=== PATIENT | male | born 1945 | race Caucasian/White ===

== ENCOUNTER 2018-02-05 11:43 | Outpatient (CLI) | payer OTHER, MEDICARE | END 2018-02-05 11:44 | disposition critical access hospital (66) | LOC: EMS 11:43 | PROVIDERS: ATTEND Surgery | DX: I46.9 Cardiac arrest, cause unspecified (principal) | CPT/HCPCS: A0425; A0427 ==

== ENCOUNTER 2018-02-05 11:51 | Emergency (ER) | payer OTHER, MEDICARE ==
[2018-02-05] MEDS ORDERED: DEXTROSE 50% ABBOJECT 25 GM/50 ML SYRINGE IVP ONE (11:52)
[2018-02-05] MEDS ORDERED: CALCIUM CHLORIDE ABBOJECT 1000MG/10 ML SYRINGE IVP ONE (11:52)
[2018-02-05] MEDS ORDERED: SODIUM BICARBONATE ABBOJECT 50 MEQ/50 ML SYRINGE IVP ONE (11:52)
[2018-02-05] MEDS ORDERED: EPINEPHrine ABBOJECT 1 MG/10 ML SYRINGE IVP ONE (11:52)
[2018-02-05] MEDS ORDERED: EPINEPHrine 4 MG in DEXTROSE 5% 246 ML IVP STA (12:18)
[2018-02-05] MEDS ORDERED: SODIUM CHLORIDE 0.9% 2,000 ML IV ONE (12:42)
[2018-02-05] MEDS ORDERED: EPINEPHrine ABBOJECT 1 MG/10 ML SYRINGE IVP STA (12:43)
[2018-02-05] MEDS ORDERED: SODIUM CHLORIDE 0.9% 1,000 ML IV ONE ×2 (12:43)
[2018-02-05] MEDS ORDERED: MAGNESIUM SULFATE 2 GRAM 2 GM/50 ML BAG IV ONE (12:43)
[2018-02-05 12:44] LABS: TROPONIN I 0.19 ng/mL (<0.49)
[2018-02-05] MEDS ORDERED: DEXTROSE 50% ABBOJECT 25 GM/50 ML SYRINGE IVP STA (12:44)
[2018-02-05] MEDS ORDERED: SODIUM BICARBONATE ABBOJECT 50 MEQ/50 ML SYRINGE IVP STA (12:44)
[2018-02-05 12:46] LABS: CREATINE KINASE MB 10.5 ng/mL (0.6-6.3)
[2018-02-05] MEDS ORDERED: ROCURONIUM 50 MG/5 ML VIAL IVP STA (12:46)
[2018-02-05 12:51] LABS: BASOPHILS # (AUTO) 0.1 10^3/uL (0.0-0.1); BASOPHILS % (AUTO) 0.4 %; EOSINOPHILS # (AUTO) 0.2 10^3/uL (0.0-0.7); EOSINOPHILS % (AUTO) 1.9 %; HGB - HEMOGLOBIN 11.4 g/dL (14.0-18.0); LYMPHOCYTES % (AUTO) 32.3 %; MEAN CORPUSCULAR HGB CONC 29.9 g/dL (32.0-36.0); MEAN CORPUSCULAR VOLUME 96.9 fL (80.0-94.0); MEAN PLATELET VOLUME 8.6 fL (7.4-11.4); MONOCYTES # (AUTO) 0.6 10^3/uL (0.0-1.0); NEUTROPHILS # (AUTO) 7.4 10^3/uL (1.5-6.6); NEUTROPHILS % (AUTO) 60.4 %; PLT - PLATELET COUNT 184 10^3/uL (130-450); RED BLOOD COUNT 3.93 10^6/uL (4.70-6.10); RED CELL DISTRIBUTION WIDTH 15.3 % (12.0-15.0); WHITE BLOOD COUNT 12.2 x10^3/uL (4.8-10.8)
--- NOTE | 2018-02-05 12:54 | ED Physician Documentation ---
PD HPI CPR - Stated complaint Stated Complaint: CPR - Chief complaint Chief Complaint: Critical Care - History obtained from History obtained from: EMS - History of Present Illness Timing - onset: How many hours ago (1) Timing - onset [place] Preceding symptoms: Unknown Contributing factors: CAD Witnessed: Arrest witnessed Bystander CPR: Bystander CPR EMS findings: Unresponsive, Apneic, Pulseless, Asystole Treatment ACCREDITED LEGAL SECRETARY: CPR, Oxygen, Intubated (edgar tube), Paced (patient has implanted pacemaker), Epi (x3) Advanced directive: Other (unknown) Review of Systems Unable to obtain: Unresponsive PD PAST MEDICAL HISTORY - Past Medical History Cardiovascular: Coronary artery disease - Past Surgical History Cardiovascular: CABG, Pacemaker - Present Medications Home Medications: Ambulatory Orders Medication Instructions Recorded Confirmed No Known Home Medications [No 02/05/18 02/05/18 Known Home Medications] - Allergies Allergies/Adverse Reactions: Allergies Allergy/AdvReac Type Severity Reaction Status Date / Time Unable to Assess Allergy Verified 02/05/18 13:33 PD ED PE NORMAL - Vitals Vital signs reviewed: Yes - General General: Other (unresponsive, pale, edgar tube in place) - HEENT HEENT: Other (vomit in mouth) - Cardiac Cardiac: Other (absent heart sounds) - Respiratory Respiratory: Other (rhonchi B with bagging) - Abdomen Abdomen: Soft, Other (distended) - Derm Derm: Other (cool, pale) - Extremities Extremities: No edema - Neuro Neuro: Other (unresponsive) Results - Vitals Vitals: Vital Signs - 24 hr 02/05/18 02/05/18 02/05/18 12:30 12:50 12:59 Temperature 35.6 C L Heart Rate 89 104 H 103 H Respiratory 13 17 Rate Blood Pressure 89/56 L 109/82 H O2 Saturation 98 91 L 02/05/18 02/05/18 02/05/18 13:21 13:39 14:05 Temperature Heart Rate 94 101 H 89 Respiratory 12 12 16 Rate Blood Pressure 113/85 H 118/82 H 96/65 O2 Saturation 99 98 100 02/05/18 02/05/18 02/05/18 14:15 14:20 14:56 Temperature 35.6 C L Heart Rate 86 91 85 Respiratory 12 18 Rate Blood Pressure 101/65 114/71 O2 Saturation 100 100 02/05/18 15:00 Temperature Heart Rate 85 Respiratory 18 Rate Blood Pressure 110/70 O2 Saturation 100 Oxygen O2 Source Mechanical ventilator - EKG (time done) 1209 Rate: Rate (enter#) (73) Rhythm: Other (AV paced) 1313 Rate: Rate (enter#) (101) Rhythm: Paced - Labs Labs: Laboratory Tests 02/05/18 02/05/18 02/05/18 12:05 12:05 12:05 WBC 12.2 H RBC 3.93 L Hgb 11.4 L Hct 38.1 L MCV 96.9 H MCH 29.0 MCHC 29.9 L RDW 15.3 H Plt Count 184 MPV 8.6 Neut # (Auto) 7.4 H Lymph # (Auto) 4.0 H [place] # (Auto) 0.6 Eos # (Auto) 0.2 Baso # (Auto) 0.1 Absolute Nucleated RBC 0.01 Nucleated RBC % 0.1 Manual Slide Review Indicated RBC Morph Micro Appear 2+ ANISOCYTOSIS PT INR Bld Gas Analysis Time Sample Site ABG pH ABG pCO2 ABG pO2 ABG HCO3 ABG Total CO2 ABG O2 Saturation ABG Oximetry Spot Check ABG Base Excess Hal Test Respiration Rate O2 Delivery Device Vent Mode FiO2 Tidal Volume PEEP Pressure Support Vent Sodium Potassium Chloride Carbon Dioxide Anion Gap BUN Creatinine Estimated GFR (MDRD) Glucose Calcium Phosphorus Magnesium Total Bilirubin AST ALT Alkaline Phosphatase Total Creatine Kinase 160 CK-MB (CK-2) 10.5 H Troponin I 0.19 Total Protein Albumin Globulin Albumin/Globulin Ratio Lipase Urine Color Urine Clarity Urine pH Ur Specific [place] Urine Protein Urine Glucose (UA) Urine Ketones Urine Occult Blood Urine Nitrite Urine Bilirubin Urine Urobilinogen Ur Leukocyte Esterase Urine RBC Urine WBC Ur Squamous Epith Cells Urine Bacteria Ur Microscopic Review Urine Culture Comments 02/05/18 02/05/18 02/05/18 12:05 12:05 13:16 WBC RBC Hgb Hct MCV MCH MCHC RDW Plt Count MPV Neut # (Auto) Lymph # (Auto) [place] # (Auto) Eos # (Auto) Baso # (Auto) Absolute Nucleated RBC Nucleated RBC % Manual Slide Review RBC Morph Micro Appear PT 15.9 H INR 1.4 H Bld Gas Analysis Time Sample Site ABG pH ABG pCO2 ABG pO2 ABG HCO3 ABG Total CO2 ABG O2 Saturation ABG Oximetry Spot Check ABG Base Excess Hal Test Respiration Rate O2 Delivery Device Vent Mode FiO2 Tidal Volume PEEP Pressure Support Vent Sodium 136 Potassium 5.1 H Chloride 103 Carbon Dioxide 15 L Anion Gap 18.0 H BUN 27 H Creatinine 1.6 H Estimated GFR (MDRD) 43 L Glucose 451 H Calcium 9.8 Phosphorus 4.9 H Magnesium 2.2 Total Bilirubin 0.7 AST 78 H ALT 39 Alkaline Phosphatase 63 Total Creatine Kinase CK-MB (CK-2) Troponin I Total Protein 6.8 Albumin 3.4 Globulin 3.4 Albumin/Globulin Ratio 1.0 Lipase 85 H Urine Color Urine Clarity Urine pH Ur Specific [place] Urine Protein Urine Glucose (UA) Urine Ketones Urine Occult Blood Urine Nitrite Urine Bilirubin Urine Urobilinogen Ur Leukocyte Esterase Urine RBC Urine WBC Ur Squamous Epith Cells Urine Bacteria Ur Microscopic Review Urine Culture Comments 02/05/18 02/05/18 02/05/18 13:20 13:49 15:30 WBC RBC Hgb Hct MCV MCH MCHC RDW Plt Count MPV Neut # (Auto) Lymph # (Auto) [place] # (Auto) Eos # (Auto) Baso # (Auto) Absolute Nucleated RBC Nucleated RBC % Manual Slide Review RBC Morph Micro Appear PT INR Bld Gas Analysis Time 1353 1531 Sample Site LEFT RADIAL LEFT RADIAL ABG pH 7.00 L* 7.14 L* ABG pCO2 58 H 39 ABG pO2 102 H 127 H ABG HCO3 14.2 L 12.9 L ABG Total CO2 16.0 L 14.1 L ABG O2 Saturation 94 98 ABG Oximetry Spot Check 98 100 ABG Base Excess -16.9 L -15.3 L Hal Test POSITIVE POSITIVE Respiration Rate 12 16 O2 Delivery Device VENTILATOR VENTILATOR Vent Mode SIMV SIMV FiO2 100.00 1.00 Tidal Volume 550 550 PEEP 7 7 Pressure Support Vent 10 10 Sodium Potassium Chloride Carbon Dioxide Anion Gap BUN Creatinine Estimated GFR (MDRD) Glucose Calcium Phosphorus Magnesium Total Bilirubin AST ALT Alkaline Phosphatase Total Creatine Kinase CK-MB (CK-2) Troponin I Total Protein Albumin Globulin Albumin/Globulin Ratio Lipase Urine Color YELLOW Urine Clarity HAZY Urine pH 6.0 Ur Specific [place] 1.020 Urine Protein 100 H Urine Glucose (UA) NEGATIVE Urine Ketones NEGATIVE Urine Occult Blood LARGE H Urine Nitrite NEGATIVE Urine Bilirubin NEGATIVE Urine Urobilinogen 0.2 (NORMAL) Ur Leukocyte Esterase NEGATIVE Urine RBC 11-25 H Urine WBC 0-3 Ur Squamous Epith Cells NONE SEEN Urine Bacteria Many H Ur Microscopic Review INDICATED Urine Culture Comments INDICATED - Rads (name of study) cxr Radiology: Prelim report reviewed, EMP read contemporaneously, See rad report ( Right lung diffuse airspace disease, differential including aspiration, pneumonia, asymmetric edema or ARDS. Endotracheal tube tip 6.5 cm above malcom. ) Procedures - Intubation Provider: Emergency physician Medications: Rocuronium Blade: Glidescope Tube: Size-enter number (7.5), Cuffed, Marked at lips-enter cm (22) Confirmation: Direct visualization, Bilateral breath sounds, No abdominal breath sound, End tidal CO2, Pulse ox, Chest xray Complications: No compications, Other (advanced 2cm after cxr) - Central Line Central Line Preparation: Unable to obtain consent, Ultrasound used, Sterile prep and drape Central line location: Right Femoral Central line type: Triple lumen Central line aftercare: Chlorhexidine disc placed, Secured, Placement confirmed , No complications PD MEDICAL DECISION MAKING - ED course Complexity details: reviewed results, re-evaluated patient, considered differential, d/w family (daughter arrived in the ED and updated), d/w pension consultant ED course: Patient is a 72-year-old male who was seen exiting the bathroom on the [facility] today when he collapsed. Bystanders were unable to palpate a pulse and started CPR. 911 was called. Patient was found to be in PEA with a paced rhythm upon EMS arrival. An AED was applied prior to EMS arrival and did not advise a shock. CPR was continued by EMS and epinephrine 1 was given. He then had return of spontaneous circulation and was breathing on his own. This lasted for approximately 10 minutes before he lost pulses again. At that point CPR was restarted and given epinephrine 2 with EMS. He then arrived to the emergency department. He was still in PEA at that time, bedside ultrasound did reveal a мария heart, though no palpable pulses. CPR was continued. Given bicarbonate, calcium, Dextrose, epinephrine 2. He then had return of spontaneous circulation again. He was also given IV fluid boluses. At that point he was monitored and found to maintain his pulses for approximately 5 minutes, at that point I changed out the Edgar tube that was placed by EMS to an endotracheal tube. 7.5. This was placed the glide scope in 1 attempt. A [place] was then inserted as well as an OG tube. I also placed a right femoral central line as he does have a pacemaker in place already. Patient was breathing over the ventilator from time to time. He was started on an epi drip as well as fentanyl and Versed for postintubation sedation. Contacted [facility] @[phone] and Intesivist will call back. Dr. Lopez (ICU at [facility]) graciously accepts in transfer at 1430. This document was made in part using voice recognition software. While efforts are made to proofread this document, sound alike and grammatical errors may occur. - Critical Care Time(min): 65 Time Includes: See progress note Data interpretation: See progress note Procedures included in critical care time: See progress note Procedures excluded from critical care time: Central IV, See progress note - Sepsis Event Vital Signs: Vital Signs - 24 hr 02/05/18 02/05/18 02/05/18 12:30 12:50 12:59 Temperature 35.6 C L Heart Rate 89 104 H 103 H Respiratory 13 17 Rate Blood Pressure 89/56 L 109/82 H O2 Saturation 98 91 L 02/05/18 02/05/18 02/05/18 13:21 13:39 14:05 Temperature Heart Rate 94 101 H 89 Respiratory 12 12 16 Rate Blood Pressure 113/85 H 118/82 H 96/65 O2 Saturation 99 98 100 02/05/18 02/05/18 02/05/18 14:15 14:20 14:56 Temperature 35.6 C L Heart Rate 86 91 85 Respiratory 12 18 Rate Blood Pressure 101/65 114/71 O2 Saturation 100 100 02/05/18 15:00 Temperature Heart Rate 85 Respiratory 18 Rate Blood Pressure 110/70 O2 Saturation 100 Oxygen O2 Source Mechanical ventilator Departure - Departure Disposition: 02 Transfer Acute Care Hosp Clinical Impression: Cardiac arrest, Signs of return of spontaneous circulation Pulmonary edema Qualifiers: Chronicity: acute Qualified Code(s): J81.0 - Acute pulmonary edema Condition: Serious Discharge Date/Time: 02/05/18 16:05
[2018-02-05 12:56] LABS: ALBUMIN 3.4 g/dL (3.2-5.5); BILIRUBIN,TOTAL 0.7 mg/dL (0.2-1.0); CALCIUM 9.8 mg/dL (8.5-10.3); CREATININE 1.6 mg/dL (0.6-1.2); TOTAL PROTEIN 6.8 g/dL (6.7-8.2)
[2018-02-05] MEDS ORDERED: MIDAZOLAM DRIP 50 MG/100 ML BAG IV STA ×2 (13:01→13:13)
[2018-02-05] MEDS ORDERED: fentaNYL 2,500 MCG in SODIUM CHLORIDE 0.9% 200 ML IV STA ×2 (13:01→13:10)
[2018-02-05 13:12] LABS: MAGNESIUM 2.2 mg/dL (1.7-2.8); PHOSPHORUS 4.9 mg/dL (2.5-4.6)
[2018-02-05 13:20] LABS: RBC MORPHOLOGY (MULTIPLE) 2+ ANISOCYTOSIS (NORMAL)
--- NOTE | 2018-02-05 13:23 | XRAY Report ---
Procedure Date: 02/05/2018 Accession Number: [id number] / [id number] Procedure: XR - Chest 1 View X-Ray CPT Code: 55164 FULL RESULT: EXAM: CHEST RADIOGRAPHY EXAM DATE: 02/05/2018 12:48 PM. CLINICAL HISTORY: Post intubation/cpr. COMPARISON: None. TECHNIQUE: 1 view. FINDINGS: Lungs/Pleura: There is asymmetric right greater than left diffuse airspace opacity. No pneumothorax. Trachea is midline. Mediastinum: Heart size is within normal limits. Gastric tube extends into the stomach. There is a left chest pacemaker device. Leads overlie right atrium, right ventricle. The tip of the endotracheal tube is 6.5 cm above malcom. Other: None. IMPRESSION: 1. Right lung diffuse airspace disease, differential including aspiration, pneumonia, asymmetric edema or ARDS. Endotracheal tube tip 6.5 cm above malcom. RADIA
[2018-02-05 13:27] LABS: INR 1.4 (0.8-1.2); PT - PROTHROMBIN TIME 15.9 secs (9.9-12.6)
[2018-02-05 13:31] LABS: BILIRUBIN,URINE NEGATIVE (NEGATIVE); GLUCOSE, URINE (UA) NEGATIVE (NEGATIVE); KETONES,URINE (UA) NEGATIVE (NEGATIVE); LEUKOCYTE ESTERASE, URINE NEGATIVE (NEGATIVE); NITRITE,URINE NEGATIVE (NEGATIVE); OCCULT BLOOD,URINE LARGE (NEGATIVE); PROTEIN,URINE 100 mg/dL (NEGATIVE); UROBILINOGEN,URINE 0.2 (NORMAL) E.U./dL (NORMAL)
[2018-02-05 13:32] LABS: CLARITY,URINE HAZY (CLEAR)
[2018-02-05 13:43] LABS: BACTERIA,URINE Many /HPF (None Seen); SQUAMOUS EPITHELIAL CELL,UR NONE SEEN (<= Few)
[2018-02-05 13:54] LABS: ABG PCO2 58 mmHg (34-45); ABG PO2 102 mmHg (80-100)
[2018-02-05 13:55] LABS: ABG BASE EXCESS -16.9 mmol/L (-2.0-3.0); ABG HCO3 14.2 mmol/L (22.0-26.0); ABG OXYGEN SATURATION 94 % (94-98); ALLEN TEST POSITIVE
[2018-02-05 15:30] VITALS: BP 110/70
[2018-02-05 15:38] LABS: ABG BASE EXCESS -15.3 mmol/L (-2.0-3.0); ABG HCO3 12.9 mmol/L (22.0-26.0); ABG OXYGEN SATURATION 98 % (94-98); ABG PCO2 39 mmHg (34-45); ABG PO2 127 mmHg (80-100); ABG TCO2 14.1 MMOL/L (21.0-29.0)
[2018-02-05 15:39] LABS: ALLEN TEST POSITIVE
[2018-02-05 15:42] LABS: ABG PH 7.14 (7.35-7.45)
== END 2018-02-05 16:05 | disposition short-term general hospital (02) ==
LOC: ED 11:51
DX: I46.9 Cardiac arrest, cause unspecified (principal); J81.0 Acute pulmonary edema; I25.10 Atherosclerotic heart disease of native coronary artery without angina pectoris; Z95.1 Presence of aortocoronary bypass graft; Z95.0 Presence of cardiac pacemaker
CPT/HCPCS: 31500; 36415; 36556; 36600; 51702; 71045; 80053; 81001; 82550; 82553; 82803; 83690; 83735; 84100; 84484; 85025; 85610; 87086; 92950; 93005; 96360; 96361; 99291; J3010; 81003; 99284